=== PATIENT | female | born 1990 | race Caucasian/White ===

== ENCOUNTER 2021-04-04 17:34 | Emergency (ER) | payer OTHER, SELFPAY ==
[2021-04-04 17:50] VITALS: BP 125/74; PULSE 95; RESP 16; TEMP 37.4; O2SAT 99
[2021-04-04] MEDS: TETANUS,DIPHTHERIA,AC PERTUSSIS ADULT (0.5 ML) BOOSTRIX IM (18:23)
[2021-04-04 19:07] VITALS: BP 141/82; PULSE 83; RESP 16; TEMP 37.3; O2SAT 99
--- NOTE | 2021-04-04 19:25 | ED.WOUNDLAC ---
HPI - Wound/Laceration General Chief Complaint: Wound/Laceration Stated Complaint: cut right 2nd finger Source: patient and RN notes reviewed Mode of arrival: ambulatory History of Present Illness HPI narrative: This is a 30-year-old female that presented to urgent care after sustaining a laceration to her right pointer finger. According to patient while she was at work she injured her hand on broken glass. Patient did receive a tetanus shot with sutures to the injured finger. No neurovascular deficiency noted pulses are palpable capillary refill within normal limits. The patient denies SOB, CP, palpitation, extremity numbness, lightheadedness, dizziness, constipation, diarrhea, chills, or fever. Related Data Allergies Allergy/AdvReac Type Severity Reaction Status Date / Time Penicillins Allergy Verified 10/04/11 14:08 Review of Systems Review of Systems: A 14 organ system Review of Systems was performed and pertinent positives included in the HPI, otherwise remaining ROS is negative. [facility] Family History Family History (Updated 04/04/21 @ 19:27 by NEW AyalaP-C) Other Family history non-contributory Exam Narrative: GENERAL: This is a well-nourished, well-developed patient, in no apparent distress. HEAD: normocephalic, atraumatic. EYES: PERRL. Sclera clear/white. Vision is grossly intact. EARS: External ears normal, auditory canals clear and without drainage, TMs normal without perforation. Hearing grossly intact. NOSE: External nose normal with no obvious nasal discharge, nares without redness, no rhinorrhea. THROAT: Mucous membranes moist, posterior pharynx clear. NECK: Neck supple, non-tender without lymphadenopathy, masses or thyromegaly. CARDIOVASCULAR: Regular rate and rhythm without murmurs, gallops, or rubs. RESPIRATORY: Clear to auscultation. Breath sounds equal bilaterally. No wheezes, rales, or rhonchi. GASTROINTESTINAL: Abdomen soft, non-tender, nondistended. Bowel sounds are active. No hepato-splenomegaly, or palpable masses. No guarding. SKIN: Left pointer finger with V-shaped laceration approximately 5 cm in size NEURO: awake, alert, and oriented to person, place and time. There were no obvious focal neurologic abnormalities. Steady gait EXTREMITIES: Normal range of motion. No edema. No calf tenderness. Negative Homans sign bilaterally. BACK: Nontender without deformity or crepitance. No flank tenderness. Course Course Emergency Course: Patient received 5 sutures to the right pointer finger. Instructed to return within 10 days for for suture removal Vital Signs Vital signs: Vital Signs Temperature 99.3 F 04/04/21 17:50 Pulse Rate 95 04/04/21 17:50 Respiratory Rate 16 04/04/21 17:50 Blood Pressure 125/74 04/04/21 17:50 Pulse Oximetry 99 04/04/21 17:50 Temperature 99.2 F 04/04/21 19:07 Pulse Rate 83 04/04/21 19:07 Respiratory Rate 16 04/04/21 19:07 Blood Pressure 141/82 H 04/04/21 19:07 Pulse Oximetry 99 04/04/21 19:07 Procedures Laceration Laceration 1: Date: 04/04/21 Site: upper extremity (Right pointer finger) Side (If applicable): right Size (cm): 5 Description: flap Depth: simple, single layer Local Anesthetic: lidocaine 1% Pre-repair: irrigated ====== Skin Level ====== Skin layer closed with: nylon Size (cm): 6-0 ====== Subcutaneous Layer ====== ====== Muscle Layer ====== ====== Tendon Layer ====== MDM - Wound/Laceration Differential Diagnosis Differential diagnosis: Likely laceration Discharge Plan Discharge Clinical Impression: Laceration Patient Disposition: Home, Self-Care Condition: Stable Instructions: Antibiotic Form, Finger Laceration (ED) Additional Instructions: -Keep the dressing clean and dry for 1-2days; then you may gently clean with soap and water whenever you take a shower; however no continuous water contact like
== END 2021-04-04 19:26 | disposition home or self-care (01) ==
PROVIDERS: Emergency Provider Nurse Practitioner
DX: S61.210A Laceration without foreign body of right index finger without damage to nail, initial encounter (principal); W25.XXXA Contact with sharp glass, initial encounter; Z23 Encounter for immunization
CPT/HCPCS: 12002; 90471; 90715; 99213; G0463

== ENCOUNTER 2021-04-13 14:16 | Emergency (ER) | payer SELFPAY ==
[2021-04-13 14:27] VITALS: BP 139/73; PULSE 91; RESP 18; TEMP 36.1; O2SAT 100
--- NOTE | 2021-04-13 14:42 | ED.SKABFB ---
HPI - Skin/Abscess/Foreign Bdy General Chief complaint: Skin/Abscess/Foreign Body Stated complaint: Suture Removal Time Seen by Provider: 04/13/21 14:35 Source: patient and RN notes reviewed Mode of arrival: ambulatory Limitations: no limitations History of Present Illness HPI narrative: Angela is a 30-year-old female patient who ambulated into the [facility]. Patient states she had sutures placed on 04/04/2021 to her right index finger. Patient is here for suture removal MD complaint: other Related Data Allergies Allergy/AdvReac Type Severity Reaction Status Date / Time Penicillins Allergy Verified 10/04/11 14:08 Review of Systems Review of Systems: CONSTITUTIONAL: Denies body aches, fever, chills, or sweats. EYES: Denies visual changes, redness, or discharge. ENT: Denies rhinorrhea, congestion, sore throat, or otalgia. CARDIOVASCULAR: Denies chest pain, palpitations, or edema. RESPIRATORY: Denies cough or dyspnea. GASTROINTESTINAL: Denies abdominal pain, nausea, vomiting, or diarrhea. GENITOURINARY: Denies dysuria or hematuria. SKIN: Denies rash, itching, + right index finger sutures MUSCULOSKELETAL: Denies back pain, joint pain, or myalgia. NEUROLOGIC: Denies headache, numbness, tingling, or weakness. PSYCH: Denies depression or anxiety. All systems reviewed & are unremarkable except as noted in HPI and below PMFSH Family History Family History Other Family history non-contributory Comments At time of signature, I have reviewed and agree with nursing past medical, surgical, social and family history unless otherwise noted. Please see nursing chart for further information. There is no relevant family history pertinent to the presenting complaint Exam Narrative: GENERAL: Well-appearing, well-nourished, and in no acute distress. HEAD: Normocephalic, atraumatic. EYES: EOMI. No redness or drainage. Conjunctivae normal. ENT: Mucous membranes pink and moist. Nares clear. NECK: Normal AROM. Supple. . CHEST: No respiratory distress. MUSCULOSKELETAL: No bony tenderness. EXTREMITIES: Normal range of motion. No edema. SKIN: Warm, dry, no rash. Capillary refill normal. Normal skin turgor. 4 cm laceration to the right index finger. NEURO: No focal deficits. Alert and oriented x3. Gait steady. PSYCH: Normal affect. No signs of depression or anxiety. Course Vital Signs Vital signs: Vital Signs Temperature 36.1 C L 04/13/21 14:27 Pulse Rate 91 04/13/21 14:27 Respiratory Rate 18 04/13/21 14:27 Blood Pressure 139/73 04/13/21 14:27 Pulse Oximetry 100 04/13/21 14:27 Temperature 36.1 C L 04/13/21 14:27 Pulse Rate 91 04/13/21 14:27 Respiratory Rate 18 04/13/21 14:27 Blood Pressure 139/73 04/13/21 14:27 Pulse Oximetry 100 04/13/21 14:27 Reviewed MDM - Skin/Abscess/Foreign Bdy MDM Narrative Medical decision making narrative: 6 sutures removed from the right index finger. Area is well approximated without redness or erythema or drainage. Patient to wash Differential Diagnosis Differential diagnosis: Likely other Medical Records Attestation: I reviewed the patient's medical records. Critical Care Time Critical Care Time Critical Care Time: No Discharge Plan Discharge Clinical Impression: Encounter for removal of sutures Patient Disposition: Home, Self-Care Condition: Stable Instructions: Antibiotic Form, Stitches Removal (ED) Additional Instructions: wash twice daily with soap and water. Protect from any injury. Your blood pressure was elevated above 120/80 today at Urgent Care. This puts you above the threshold for follow up. Please schedule a followup visit with your personal physician as soon as possible, for further evaluation and treatment. Even blood pressure exceeding 120/80 may indicate pre-hypertension. Patient Language: Kiswahili Prescriptions: No Action hydrocodone-acetaminophe
== END 2021-04-13 14:49 | disposition home or self-care (01) ==
PROVIDERS: Emergency Provider Nurse Practitioner Family
DX: S61.210D Laceration without foreign body of right index finger without damage to nail, subsequent encounter (principal); X58.XXXD Exposure to other specified factors, subsequent encounter
CPT/HCPCS: 99211; G0463

== ENCOUNTER 2021-09-07 22:40 | Emergency (ER) | payer SELFPAY ==
[2021-09-07 22:44] VITALS: BP 148/89; PULSE 96; RESP 16; TEMP 36.1; O2SAT 100
--- NOTE | 2021-09-08 02:39 | PC.NURSE ---
Pt to intake desk reporting she wants to leave and will probably just return sometime tomorrow due to long wait time. Pt encouraged to return if symptoms worsen. Pt A&Ox4 and in no acute distress
== END 2021-09-08 02:51 | disposition left against medical advice (07) ==
LOC: ANHED 09-08 02:50
DX: R51.9 Headache, unspecified (principal)
CPT/HCPCS: 99199

== ENCOUNTER 2021-09-08 16:12 | Emergency (ER) | payer OTHER, SELFPAY ==
[2021-09-08 16:17] VITALS: BP 150/84; PULSE 93; RESP 16; TEMP 36.3; O2SAT 100
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
== END 2021-09-08 17:00 | disposition home or self-care (01) ==
PROVIDERS: Emergency Provider Nurse Practitioner Family
DX: S13.4XXD Sprain of ligaments of cervical spine, subsequent encounter (principal); V49.40XD Driver injured in collision with unspecified motor vehicles in traffic accident, subsequent encounter
CPT/HCPCS: 99283

== ENCOUNTER 2022-07-20 14:33 | Emergency (ER) | payer SELFPAY ==
[2022-07-20 14:48] VITALS: BP 138/84; PULSE 73; RESP 16; TEMP 36.2; O2SAT 99
--- NOTE | 2022-07-20 15:34 | ED.DENTAL ---
HPI - Dental/Oral General Chief complaint: Dental/Oral Stated complaint: left mouth pain Time Seen by Provider: 07/20/22 14:46 History of Present Illness HPI Narrative: 32-year-old female presents to the emergency room for evaluation of left upper dental pain. Notes that she has been having pain for 2 days. Sensitive to heat, alleviated by cold. States pain radiates up into the left side of her face with some mild swelling. Denies fevers. States pain is aggravated by chewing. Related Data Allergies Allergy/AdvReac Type Severity Reaction Status Date / Time Penicillins Allergy Other Verified 07/20/22 14:34 Review of Systems Review of Systems: CONSTITUTIONAL: Denies fever, chills, or sweats. EYES: Denies visual changes, redness, or discharge. ENT: Reports dental pain CARDIOVASCULAR: Denies chest pain, palpitations, or edema. RESPIRATORY: Denies cough or dyspnea. GASTROINTESTINAL: Denies abdominal pain, nausea, vomiting, or diarrhea. GENITOURINARY: Denies dysuria or hematuria. SKIN: Denies rash or itching. MUSCULOSKELETAL: Denies back pain, joint pain, or myalgia. NEUROLOGIC: Denies headache, numbness, dizziness, or weakness. PSYCHIATRIC: Denies anxiety or depression. [facility] Family History Family History Other Family history non-contributory Exam Narrative: GENERAL: Well-appearing, well-nourished, no physical limitations, and in no acute distress. HEAD: Normocephalic, atraumatic. EYES: Conjunctivae normal, PERRLA and EOMI. ENT: Tenderness to the left upper molars, with obvious caries noted. No erythema or swelling around the gingivae CHEST: Clear to auscultation. No respiratory distress. No wheezes rales or rhonchi. HEART: Regular rate and rhythm. No murmur heard. Normal peripheral pulses. EXTREMITIES: Normal range of motion. No edema. No clubbing or cyanosis SKIN: Warm, dry, no rash. No noted wounds NEURO: No focal deficits. Alert and oriented x3. MAEW. CN's II-XI intact bilaterally, normal gait PSYCH: Cooperative. Normal mood and affect. Course Vital Signs Vital signs: Vital Signs Temperature 36.2 C L 07/20/22 14:48 Pulse Rate 73 07/20/22 14:48 Respiratory Rate 16 07/20/22 14:48 Blood Pressure 138/84 07/20/22 14:48 Pulse Oximetry 99 07/20/22 14:48 Temperature 36.2 C L 07/20/22 14:48 Pulse Rate 73 07/20/22 14:48 Respiratory Rate 16 07/20/22 14:48 Blood Pressure 138/84 07/20/22 14:48 Pulse Oximetry 99 07/20/22 14:48 Discharge Plan Discharge Clinical Impression: Toothache Patient Disposition: Home, Self-Care Condition: Stable Instructions: Antibiotic Form, Toothache (ED) Prescriptions: New clindamycin HCl 300 mg capsule 300 mg PO Q8H Qty: 21 0RF tramadol 50 mg tablet 50 mg PO Q6H PRN (Reason: pain) Qty: 12 0RF No Action hydrocodone-acetaminophen 7.5-325 mg tablet 1 tablet PO Q8H PRN (Reason: pain) Qty: 10 0RF methocarbamol 750 mg tablet 750 mg PO TID Qty: 20 0RF Follow-up/Referrals: PHYSICIAN,PRESSURE DISPATCHER [Primary Care Provider] - Stand Alone Forms: Work/School Release IP Time of Disposition: 15:34
== END 2022-07-20 15:49 | disposition home or self-care (01) ==
PROVIDERS: Emergency Provider Nurse Practitioner Family
DX: K08.89 Other specified disorders of teeth and supporting structures (principal)
CPT/HCPCS: 99283

== ENCOUNTER 2022-10-21 22:17 | Emergency (ER) | payer SELFPAY ==
[2022-10-21 22:20] VITALS: BP 138/80; PULSE 84; RESP 16; TEMP 36.9; O2SAT 100
--- NOTE | 2022-10-21 23:45 | ED.SKABFB ---
HPI - Skin/Abscess/Foreign Bdy General Chief complaint: Skin/Abscess/Foreign Body <Nedra Arango PA-C - Last Filed: 10/22/22 00:00> Stated complaint: Spider bite? <Nedra Arango PA-C - Last Filed: 10/22/22 00:00> Time Seen by Provider: 10/21/22 23:10 <Nedra Arango PA-C - Last Filed: 10/22/22 00:00> History of Present Illness HPI narrative: 32 y/o F reports for evaluation for potential spider bite to her right anterior thigh. Patient states yesterday she noticed a lesion to her right anterior thigh and today noticed surrounding redness while at work. She reports warmth, erythema and pain to the site. She states she did not see a spider bite her or feel a spider bite. She denies fever, nausea or vomiting, drainage from the site. <Nedra Arango PA-C - Last Filed: 10/22/22 00:00> Related Data Allergies/Adverse reactions: Allergies Allergy/AdvReac Type Severity Reaction Status Date / Time Penicillins Allergy Other Verified 07/20/22 14:34 <Nedra Arango PA-C - Last Filed: 10/22/22 00:00> Review of Systems Review of Systems: CONSTITUTIONAL: Denies fever, chills EYES: Denies visual changes, redness, or discharge. ENT: Denies rhinorrhea, congestion, sore throat, or otalgia. CARDIOVASCULAR: Denies chest pain, palpitations, or edema. RESPIRATORY: Denies cough or dyspnea. GASTROINTESTINAL: Denies abdominal pain, nausea, vomiting, or diarrhea. GENITOURINARY: Denies dysuria or hematuria. SKIN: See HPI MUSCULOSKELETAL: Denies back pain, joint pain, or myalgia. NEUROLOGIC: Denies headache, numbness, dizziness, or weakness. PSYCHIATRIC: Denies anxiety or depression. <Nedra Arango PA-C - Last Filed: 10/22/22 00:00> [facility] Family History Family History: Family History Other Family history non-contributory <Nedra Arango PA-C - Last Filed: 10/22/22 00:00> Exam Narrative: GENERAL: Well-appearing, in no acute distress. Patient resting comfortably in exam bed. She is pleasant and conversational. HEAD: Normocephalic NECK: Supple. CHEST: No respiratory distress. Clear to auscultation, no adventitious breath sounds. HEART: Regular rate and rhythm. No murmur heard. Normal peripheral pulses. EXTREMITIES: Normal range of motion. No edema. SKIN: 9.5 x 5.5cm area of erythema, warmth and tenderness with a central pinpoint lesion to the right anterior thigh. No induration or fluctuation. No drainage. NEURO: No focal deficits. Alert and oriented x3. PSYCH: Normal mood and affect. <Nedra Arango PA-C - Last Filed: 10/22/22 00:00> Course HEDIS ABSTRACTOR/PA Physician Supervision This is a was performed by both a physician and an APC. I performed all aspects of the MDM as documented w/ the following additions: 32-year-old presenting with an erythematous pranav on her thigh. spider bite versus cellulitis. She will be Trialed on a course of Keflex with primary care follow-up. Return precautions given.All questions answered. Patient in agreement w/ disposition. <Devante Medina MD - Last Filed: 10/22/22 06:44> Vital Signs Vital signs: Vital Signs Temperature 98.5 F 10/21/22 22:20 Pulse Rate 84 10/21/22 22:20 Respiratory Rate 16 10/21/22 22:20 Blood Pressure 138/80 10/21/22 22:20 Pulse Oximetry 100 10/21/22 22:20 Oxygen Delivery Room Air 10/21/22 22:20 Temperature 98.5 F 10/21/22 22:20 Pulse Rate 81 10/21/22 23:57 Respiratory Rate 16 10/21/22 23:57 Blood Pressure 136/84 10/21/22 23:57 Pulse Oximetry 99 10/21/22 23:57 Oxygen Delivery Room Air 10/21/22 22:20 <Nedra Arango PA-C - Last Filed: 10/22/22 00:00> Vital Signs Temperature 98.5 F 10/21/22 22:20 Pulse Rate 84 06/26/23 22:20 Respiratory Rate 16 10/21/22 22:20 Blood Pressure 138/80 10/21/22 22:20 Pulse Oximetry 100 10/21/22 22:20 Oxygen Delivery Room Air 09/27
[2022-10-21] MEDS: CEPHALEXIN 500 MG CAPSULE PO (23:52)
[2022-10-21 23:57] VITALS: BP 136/84; PULSE 81; RESP 16; O2SAT 99
== END 2022-10-22 | disposition home or self-care (01) ==
PROVIDERS: Emergency Provider Physician Assistant
DX: L03.115 Cellulitis of right lower limb (principal); T63.301A Toxic effect of unspecified spider venom, accidental (unintentional), initial encounter
CPT/HCPCS: 99283; A9270

== ENCOUNTER 2024-02-21 12:01 | Emergency (ER) | payer SELFPAY ==
[2024-02-21] VITALS (8 sets, daily range): BP systolic 122–141; BP diastolic 52–88; PULSE 57–92; RESP 16–20; TEMP 36.4–37; O2SAT 96–100
--- NOTE | ~2024-02-21 | CT_ITS ---
EXAMINATION: CT abdomen pelvis w con DATE: 02/21/2024 15:18 INDICATION: Lower abdominal pain, nausea and vomiting TECHNIQUE: Computed tomography (CT) of the abdomen and pelvis was performed with 100 CC Omnipaque 350 intravenous contrast. Automated exposure control and iterative reconstruction technique were employe d. Exam dose: 1540.36 mGy-cm total exam DLP. COMPARISON: None. FINDINGS: The lung bases are clear. Normal heart size. No pericardial or pleural effusion. The liver, gallbladder, bile ducts, pancreas, pancreatic duct, spleen, and adrenal glands and kidneys appear normal. Normal caliber of the abdominal aorta. No intraperitoneal or retroperitoneal or pelvic mass lesion or adenopathy or ascites is detected. Approximately 1.6 x 1.9 cm. Cervical nabothian cyst. The uterus, adnexal areas and urinary bladder ar e otherwise unremarkable. Normal appendix. No bowel obstruction, bowel wall thickening, pneumatosis or intraperitoneal free air is detected. No suspicious osteolytic or osteoblastic lesions are noted. IMPRESSION: Prominent apparent cervical nabothian cyst; otherwise unremarkable examination Normal appendix Reviewed, dictated and finalized at [facility]. Reviewed, dictated and finalized at [facility].
[2024-02-21 12:40] LABS: Basophils Percent Auto 0.3 % (0.2-1.2); Eosinophils Percent Auto 0.1 % (0-4.4); Hematocrit 41.5 % (37.0-47.0); Hemoglobin 13.6 g/dL (12.0-15.0); Immature Granulocyte Absolute 0.03 K/mm3 (0.00-0.031); Immature Granulocyte Percent A 0.3 % (0-0.5); Lymphocytes Absolute Auto 1.09 K/mm3 (0.9-3.2); Lymphocytes Percent Auto 11.5 % (18.3-44.2); Mean Corpuscular HGB Conc 32.8 g/dl (32-36); Mean Corpuscular Hemoglobin 27.1 pg (26-34); Mean Corpuscular Volume 82.8 fl (80-100); Mean Platelet Volume 10.2 fl (7.4-10.4); Monocytes Absolute Auto 0.5 K/mm3 (0.1-0.6); Monocytes Percent Auto 5.6 % (2.6-8.5); Neutrophils Absolute Auto 7.8 K/mm3 (1.3-6.7); Neutrophils Percent Auto 82.2 % (45.5-73.1); Platelet Count Result 283 k/mm3 (150-375); Red Blood Count 5.01 M/mm3 (4.2-5.4); Red Cell Distribution Width 12.5 % (11.5-14.5); White Blood Count 9.5 K/mm3 (4.5-10.0)
[2024-02-21 12:55] LABS: Alanine Aminotransferase 14 U/L (6-35); Albumin Level 4.5 g/dL (3.5-5.1); Alkaline Phosphatase 64 U/L (38-126); Anion Gap 11 mmol/L (4-12); Aspartate Amino Transferase 16 U/L (14-36); Blood Urea Nitrogen 11 mg/dL (7-17); Calcium 9.3 mg/dL (8.4-10.2); Carbon Dioxide 26 mmol/L (22-30); Chloride 99 mmol/L (98-107); Estimated CRCL calculation 103 ml/min; Estimated Glomerular Filt Rate > 60; Glucose 97 mg/dL (65-110); Lipase 62 U/L (23-300); Potassium 3.6 mmol/L (3.4-5.0); Sodium 136 mmol/L (137-145)
[2024-02-21] MEDS: MORPHINE SULFATE (*CRX) 4 MG/ML INJ IV PUSH (13:12)
[2024-02-21] MEDS: SODIUM CHLORIDE 0.9% IV 1,000 ML 999 ML IV CONT (13:12)
[2024-02-21] MEDS: PROMETHAZINE HCL 25 MG/ML AMPUL 12.5 MG IV PUSH (13:12)
[2024-02-21 14:31] LABS: BEDSIDEPREGUCG Negative (Negative)
[2024-02-21 15:19] LABS: Add Urine Microscopic? YES; Appearance Urine Clear (Clear); Bacteria Urine 1+ /hpf; Bilirubin Urine Negative (Negative); Blood Urine Negative (Negative); Color Urine Yellow (Yellow); Glucose Urine UA Negative (Negative); Ketones Urine 3+ mg/dL (Negative); Leukocyte Esterase Ur Trace LEU/UL (Negative); Need Manual Microscopic Reviewed; Nitrate Urine Negative (Negative); Non Pathogenic Casts 0-2; Protein Urine Trace mg/dL (Negative); Specific Grav Ur 1.023 (1.001-1.035); Squamous Epithelial Cell Urine Few /hpf (Few); pH Urine 8.5 (5.0-9.0)
[2024-02-21] MEDS: KETOROLAC 30 MG/ML VIAL (*BKC) IV PUSH (16:14)
--- NOTE | 2024-02-21 16:16 | ED.NAVMDI ---
HPI - Nausea/Vomiting/Diarrhea General Chief complaint: Nausea/Vomiting/Diarrhea Stated complaint: nausea, Time Seen by Provider: 02/21/24 12:34 History of Present Illness HPI Narrative: patient is a 33-year-old female who presents ER with nausea vomiting. Associated diarrhea. Ongoing for several days. Seen at [facility] and discharged. She did not have a CT scan. She has developed cramping lower abdominal pain. No urinary frequency urgency or dysuria. No known sick contacts. A to vomiting she has developed aches in her low back. Related Data Allergies Allergy/AdvReac Type Severity Reaction Status Date / Time Penicillins Allergy Other Verified 02/21/24 12:03 Review of Systems Review of Systems: All systems reviewed & are unremarkable except as noted in HPI and below Constitutional: Constitutional: Reports no additional constitutional complaints ENT: Reports system reviewed and no additional complaints, except as documented Cardiovascular: Cardiovascular: Reports no additional cardiovascular complaints Respiratory: Respiratory: Reports no additional respiratory complaints Gastrointestinal: Gastrointestinal: Reports no additional gastrointestinal complaints [facility] Past Medical History Medical History (Updated 02/21/24 @ 16:23 by Mahendra Giles MD) Healthy female adult Surgical History Surgical History (Updated 02/21/24 @ 16:19 by Mahendra Giles MD) History of section Family History Family History Other Family history non-contributory Exam Narrative: GENERAL: Fatigued-appearing, morbidly obese, and in no acute distress. HEAD: Normocephalic, atraumatic. ENT: Mucous membranes moist. NECK: Supple. CHEST: Clear to auscultation. No respiratory distress. HEART: Regular rate and rhythm. Normal peripheral pulses. ABDOMEN: Soft, mild discomfort in BLQ w/o guarding, nondistended. EXTREMITIES: Normal range of motion. No edema. SKIN: Warm, dry, no rash. NEURO: Alert and oriented x3. PSYCH: Normal mood and affect. Course Course Emergency Course: no longer vomiting. Has had mild headache so will add on Toradol after she already received morphine and that is ENT. Cbc without leukocytosis. CMP without electrolyte derangement. Urinalysis with a few white blood cells and squamous epithelial cells. Patient had no urinary symptoms but treating her with antibiotic for 3 days would be reasonable. Imaging of the abdomen pelvis showed no acute process. Discharge home. Vital Signs Vital signs: Vital Signs Temperature 97.6 F 02/21/24 12:01 Pulse Rate 92 02/21/24 12:01 Respiratory Rate 16 02/21/24 12:01 Blood Pressure 138/88 02/21/24 12:01 Pulse Oximetry 100 02/21/24 12:01 Temperature 97.6 F 02/21/24 12:01 Pulse Rate 57 L 02/21/24 15:02 Respiratory Rate 18 02/21/24 15:02 Blood Pressure 125/70 02/21/24 15:02 Pulse Oximetry 98 02/21/24 15:02 MDM - Nausea/Vomiting/Diarrhea Lab Data 02/21/24 12:35 02/21/24 12:35 Labs: Lab Results 02/21/24 02/21/24 02/21/24 Range/Units 12:35 14:20 14:29 WBC 9.5 (4.5-10.0) K/mm3 RBC 5.01 (4.2-5.4) M/mm3 Hgb 13.6 (12.0-15.0) g/dL Hct 41.5 (37.0-47.0) % MCV 82.8 (80-100) fl MCH 27.1 (26-34) pg MCHC 32.8 (32-36) g/dl RDW 12.5 (11.5-14.5) % Plt Count 283 (150-375) k/mm3 MPV 10.2 (7.4-10.4) fl Immature Gran % (Auto) 0.3 (0-0.5) % Neut % (Auto) 82.2 H (45.5-73.1) % Lymph % (Auto) 11.5 L (18.3-44.2) % Cotton % (Auto) 5.6 (2.6-8.5) % Eos % (Auto) 0.1 (0-4.4) % Baso % (Auto) 0.3 (0.2-1.2) % Lymph # (Auto) 1.09 (0.9-3.2) K/mm3 Cotton # (Auto) 0.5 (0.1-0.6) K/mm3 Eos # (Auto) 0.0 (0-0.3) K/mm3 Baso # (Auto) 0.0 (0.0-0.1) K/mm3 Abs Immat Gran (auto) 0.03 (0.00-0.031) K/mm3 Absolute Neuts (auto) 7.8 H (1.3-6.7) K/mm3 Absolute Nucleated RBC 0.000 (0.0-0.012) K/mm3 Nucleated RBC % 0.0 (0.0-0.2) % Sodium 136 L (137-145) mmol/L Potassium 3.6 (3.4-5.0) mmol/L Chloride 99 (98-107) mmol/L Carbon Dioxide 26 (22-30) mmol/L Anion Gap 11 (4-12) mmol/L BUN 11 (7-17) mg/dL Creatinine 0.80 (0.7-1.0) mg/dL Estim Creat Clear Calc 103 ml/min Estimated GFR > 60 (59 - ) Glucose 97 (65-110) mg/dL Calcium 9.3 (8.4-10.2) mg/dL Total Bilirubin 1.0 (0.2-1.3) mg/dL AST 16 (14-36) U/L ALT 14 (6-35) U/L Alkaline Phosphatase 64 (38-126) U/L Total Protein 8.0 (6.3-8.2) g/dL Albumin 4.5 (3.5-5.1) g/dL Lipase 62 (23-300) U/L Urine Color Yellow (Yellow) Urine Appearance Clear (Clear) Urine pH 8.5 (5.0-9.0) Ur Specific [place] 1.023 (1.001-1.035) Urine Protein Trace (Negative) mg/dL Urine Glucose (UA) Negative (Negative) mg/dL Urine Ketones 3+ H (Negative) mg/dL Ur Blood (Man) Negative (Negative) Urine Nitrate Negative (Negative) Urine Bilirubin Negative (Negative) Urine Urobilinogen 1.0 (<2.0) mg/dL Add Ur Microanalysis Reviewed Leukocyte Esterase Rfl Trace H (Negative) FLY/UL Urine RBC 6-10 H (0-2) /hpf Urine WBC 6-10 H (0-3) /hpf Ur Squamous Epith Cells Few (Few) /hpf Urine Bacteria 1+ H /hpf Urine Casts 0-2 POC Urine HCG, Qual Negative (Negative) Imaging Data Radiologist's impression: ITS Impressions Abdomen/Pelvis CT 02/21/24 15:34 IMPRESSION: Prominent apparent cervical nabothian cyst; otherwise unremarkable examination Normal appendix Discharge Plan Discharge Clinical Impression: UTI (urinary tract infection), Vomiting, Nabothian cyst Patient Disposition: Home, Self-Care Condition: Stable Instructions: Antibiotic Form, Urinary Tract Infection in Women (ED), Acute Nausea and Vomiting (ED) Additional Instructions: You should return to the emergency department if you develop severe nausea and vomiting and are unable to keep liquids down, if you develop severe back/flank or stomach pain, or if your symptoms are not clearly improving at home. Incidentally you were found to have a nabothian cyst on your cervix. Follow-up with your head of partner development to evaluate this further. Prescriptions: New promethazine 12.5 mg tablet 12.5 mg PO QID PRN (Reason: nausea and vomiting) Qty: 14 0RF cephalexin 500 mg capsule 500 mg PO Q12H Qty: 10 0RF No Action hydrocodone-acetaminophen 7.5-325 mg tablet 1 tablet PO Q8H PRN (Reason: pain) Qty: 10 0RF clindamycin HCl 300 mg capsule 300 mg PO Q8H Qty: 21 0RF tramadol 50 mg tablet 50 mg PO Q6H PRN (Reason: pain) Qty: 12 0RF methocarbamol 750 mg tablet 750 mg PO TID Qty: 20 0RF cephalexin 500 mg capsule 500 mg PO QID Qty: 28 0RF Follow-up/Referrals: Brain Temple MD [Physician] - 1 Week PHYSICIAN,INTERNET MARKETING INTERN [Primary Care Provider] -
== END 2024-02-21 16:34 | disposition home or self-care (01) ==
PROVIDERS: Emergency Provider Emergency Medicine
DX: N39.0 Urinary tract infection, site not specified (principal); N88.8 Other specified noninflammatory disorders of cervix uteri; R11.10 Vomiting, unspecified
CPT/HCPCS: 36415; 74177; 80053; 81001; 81025; 83690; 85025; 87086; 96361; 96374; 96375; 99284; J1885; J2270; J2550; J7030; Q9967